=== PATIENT | male | born 1960 | race Caucasian/White ===

== ENCOUNTER 2021-05-04 10:03 | Outpatient (CLI) | payer BC, SELFPAY ==
--- NOTE | 2021-05-04 11:46 | P.PCNPFT_ITS ---
PFT Procedure Performed PFT Procedure Performed Flow Vol Loop Spirometry w/o Bronchodil PFT Interpretation This is a pulmonary function test with spirometry. The test was performed and results interpreted in accordance with the 2019 and 2005 ATS/ERS Task Force guidelines respectively using the Global Lung Function Initiative-2012 reference equations. Patient demonstrated good effort and cooperation. Reproducibility criteria were met. The quality of the spirometry maneuver was Grade A. Findings: Spirometry: The contour the inspiratory and expiratory flow tracing are normal. The FVC is 4.35 L, 89% predicted. The cot the FEV1 is 3.25 L, 87% predicted. The FEV1: FVC ratio 75%. In comparison to previous pulmonary function test on 05/01/2016 the FVC has decreased from 5.04 L to 4.35 L. The FEV1 has decreased from 3.74 L to 3.25 L. Impression: The spirometry is normal without evidence of an obstructive a bnormality. in comparison to previous spirometry on 05/01/2016 there has been a greater than anticipated time dependent decrease in the FVC and FEV1. Clinical correlation is recommended
== END 2021-05-04 10:04 | disposition home or self-care (01) ==
PROVIDERS: PCP Family Medicine; Visit Provider Internal Medicine Endocrinology, Diabetes & Metabolism
DX: E10.65 Type 1 diabetes mellitus with hyperglycemia (principal)
CPT/HCPCS: 94375

== ENCOUNTER 2023-08-06 10:06 | Outpatient (CLI) | payer BC, SELFPAY ==
--- NOTE | 2023-08-06 12:04 | P.PCNPFT_ITS ---
PFT Procedure Performed PFT Procedure Performed Plethysmography (Lung Vol) Diffusing Cap (DLCO) Flow Vol Loop Spirometry w/o Bronchodil PFT Interpretation Lung volumes were measured with the body plethysmography method. Lung volumes are unremarkable. Spirometry showed normal expiratory flow rates and a normal FEV1 to FVC ratio 77%. No post bronchodilator study carried out. Lung diffusion capacity is within the normal range at 101% predicted. The flow- volume loop is unremarkable. In comparison to previous spirometry done in 2020, FVC and FEV1 are essentially unchanged. Impression: Spirometry, lung volumes, and lung diffusion capacity all within the normal range.
== END 2023-08-06 10:07 | disposition home or self-care (01) ==
PROVIDERS: PCP Family Medicine; Visit Provider Nurse Practitioner Family
DX: E78.00 Pure hypercholesterolemia, unspecified (principal); E78.5 Hyperlipidemia, unspecified
CPT/HCPCS: 94375; 94726; 94729

== ENCOUNTER 2023-10-09 01:54 | Day surgery (SDC) | payer BC, SELFPAY ==
[2023-09-12 14:41] VITALS: BMI 26.4
--- NOTE | 2023-10-01 09:18 | SUR.PREOP ---
Patient called regarding upcoming procedure. Reviewed preop instructions, appointment times, and procedure prep.
--- NOTE | 2023-10-01 09:22 | SUR.PREOP ---
Called patient with a reminder call and patient said he needed to reschedule as his tested positive to Covid last week. Patient moved to at 1330.
[2023-10-01 16:07] VITALS: BMI 26.4
[2023-10-09 09:54] VITALS: BP 138/84; PULSE 71; RESP 20; TEMP 35.9; O2SAT 100; BMI 23.3
[2023-10-09] MEDS: LACTATED RINGERS 1,000 ML 150 ML IV CONT (10:08)
--- NOTE | 2023-10-09 10:10 | SUR.PREOP ---
Ok to use Dexcom per Dr. Lyle for glucose reading. Pt's blood sugar 125 at 1008.
--- NOTE | 2023-10-09 10:42 | PM.HPGS ---
History of Present Illness History of Present Illness Consent: Risks, benefits, and alternatives have been discussed and questions answered. Patient agrees to proceed with procedure. Chief complaint: neoplasm screening Narrative: Kin Villalta is a 62 year old male Presents for screening colonoscopy. Patient's current weight appetite and bowel movements are normal. Patient denies abdominal pain. He has had no bleeding. Family history noncontributory. Previous colonoscopy in 2008 was unremarkable. Review of Systems Review of Systems: Review of systems noncontributory. 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 Gender identity (if verbalized by the patient): Male Spiritual care concerns: No Meds Home Medications and Allergies Home Medications Medication Instructions Recorded Confirmed Type pen needle, diabetic 32 gauge x #90 ea 10/25/22 10/09/23 Rx 5/32 (BD Ultra-Fine Krysta Pen Needle) blood-glucose meter,continuous #1 ea 02/06/23 10/09/23 Rx (Dexcom G7 Fish Egg Packer) glucagon 3 mg/actuation nasal spray 3 mg intranasal ONCE #2 ea 02/06/23 10/09/23 Rx losartan 50 mg tablet 50 mg PO DAILY 90 days #90 tabs 02/06/23 10/09/23 Rx metformin 1,000 mg tablet,extended 1,000 mg PO DAILY 90 days #90 tabs 06/22/23 10/09/23 Rx release 24hr sildenafil 50 mg tablet See Rx Instructions .Route 06/28/23 10/09/23 Rx .COMPLEX #6 tabs insulin regular human See Rx Instructions inhalation 08/13/23 10/09/23 Rx .COMPLEX 90 days #180 units terbinafine HCl 250 mg tablet 250 mg PO DAILY #90 tabs 08/14/23 10/09/23 Rx atorvastatin 40 mg tablet See Rx Instructions .Route 08/27/23 10/09/23 Rx .COMPLEX #90 tabs insulin regular human (Afrezza) See Rx Instructions .Route .COMPLEX 09/12/23 10/09/23 History sodium,potassium,mag sulfates 17.5 See Rx Instructions PO .COMPLEX 09/12/23 10/09/23 Rx gram-3.13 gram-1.6 gram oral soln #354 mL (Suprep Bowel Prep Kit) insulin degludec 100 unit/mL (3 See Rx Instructions .Route 10/04/23 10/09/23 Rx mL) subcutaneous pen (Tresiba .COMPLEX #15 mL FlexTouch U-100 insulin) Allergies Allergy/AdvReac Type Severity Reaction Status Date / Time No Known Allergies Allergy Verified 10/09/23 09:51 Vital Signs Vital Signs - 24 hr 10/09/23 09:54 Temperature 96.7 F L Pulse Rate 71 Respiratory Rate 20 Blood Pressure 138/84 Pulse Oximetry 100 Oxygen Delivery Room Air Exam Narrative: Physical exam reveals patient to be alert. Vital signs stable. HEENT exam is unrem
--- NOTE | 2023-10-09 10:44 | WPDANESEPPF ---
Anes - Initial Pre Proc Eval Procedure: Operation Date: 10/09/23 10:30 Proposed Procedures p Colonoscopy - Doug Silva MD Date/Time: 10/09/23 10:44 Surgeon: Doug Silva MD Pre Op Diagnosis: neoplasm screening Patient Data Age: 62 Gender: M Height: 1.83 m Weight: 77.9 kg Last Vital Signs Temp 96.7 F L 10/09/23 09:54 Pulse 71 10/09/23 09:54 Resp 20 10/09/23 09:54 BP 138/84 10/09/23 09:54 Pulse Ox 100 10/09/23 09:54 O2 Del Method Room Air 10/09/23 09:54 Allergies Allergy/AdvReac Type Severity Reaction Status Date / Time No Known Allergies Allergy Verified 10/09/23 09:51 Home Medications Medication Instructions Recorded Confirmed Type pen needle, diabetic 32 gauge x #90 ea 10/25/22 10/09/23 Rx 5/32 (BD Ultra-Fine Krysta Pen Needle) blood-glucose meter,continuous #1 ea 02/06/23 10/09/23 Rx (Dajie G7 Remnants Cutter) glucagon 3 mg/actuation nasal spray 3 mg intranasal ONCE #2 ea 02/06/23 10/09/23 Rx losartan 50 mg tablet 50 mg PO DAILY 90 days #90 tabs 02/06/23 10/09/23 Rx metformin 1,000 mg tablet,extended 1,000 mg PO DAILY 90 days #90 tabs 06/22/23 10/09/23 Rx release 24hr sildenafil 50 mg tablet See Rx Instructions .Route 06/28/23 10/09/23 Rx .COMPLEX #6 tabs insulin regular human See Rx Instructions inhalation 08/13/23 10/09/23 Rx .COMPLEX 90 days #180 units terbinafine HCl 250 mg tablet 250 mg PO DAILY #90 tabs 08/14/23 10/09/23 Rx atorvastatin 40 mg tablet See Rx Instructions .Route 08/27/23 10/09/23 Rx .COMPLEX #90 tabs insulin regular human (Afrezza) See Rx Instructions .Route .COMPLEX 09/12/23 10/09/23 History sodium,potassium,mag sulfates 17.5 See Rx Instructions PO .COMPLEX 09/12/23 10/09/23 Rx gram-3.13 gram-1.6 gram oral soln #354 mL (Suprep Bowel Prep Kit) insulin degludec 100 unit/mL (3 See Rx Instructions .Route 10/04/23 10/09/23 Rx mL) subcutaneous pen (Tresiba .COMPLEX #15 mL FlexTouch U-100 insulin) Patient hx anesthesia problems: none Family hx anesthesia problems: none Results Review: All pre-operative results and documents have been reviewed as part of the pre-operative evaluation. 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 Gender identity (if verbalized by the patient): Male Spiritual care concerns: No Anes - Eval Final PreProcedure Day of Procedure 10/09/23 10:44 Patient weight: normal Heart: regular rate and rhythm Lungs: clear to auscultation Airway: Mallampati scale class II Neurological: alert and oriente
[2023-10-09 11:43] VITALS: BP 93/60; PULSE 69; RESP 26; O2SAT 95
[2023-10-09 11:53] VITALS: BP 116/70; PULSE 65; RESP 18; O2SAT 100
[2023-10-09 12:03] VITALS: BP 113/70; PULSE 61; RESP 18; O2SAT 99
== END 2023-10-09 12:12 | disposition home or self-care (01) ==
PROVIDERS: PCP Family Medicine; Visit Provider Internal Medicine Gastroenterology
PROC: 0DJD8ZZ Inspection of Lower Intestinal Tract, Via Natural or Artificial Opening Endoscopic (ICD-10-PCS; CPT 45378; principal; 2023-10-09 10:30)
DX: Z12.11 Encounter for screening for malignant neoplasm of colon (principal); D12.3 Benign neoplasm of transverse colon; K64.8 Other hemorrhoids; E78.00 Pure hypercholesterolemia, unspecified; E10.65 Type 1 diabetes mellitus with hyperglycemia; N52.9 Male erectile dysfunction, unspecified; Z79.4 Long term (current) use of insulin; Z79.85 Long-term (current) use of injectable non-insulin antidiabetic drugs; Z79.84 Long term (current) use of oral hypoglycemic drugs; Z82.49 Family history of ischemic heart disease and other diseases of the circulatory system; Z80.42 Family history of malignant neoplasm of prostate
CPT/HCPCS: 45385; 88305; J2704; J7120